=== PATIENT | male | born 1990 | race Caucasian/White ===

== ENCOUNTER 2020-08-02 20:47 | Emergency (ER) | payer OTHER, SELFPAY ==
[2020-08-02 20:47] VITALS: BP 129/72; PULSE 90; RESP 16; TEMP 36.8; O2SAT 97; BMI 29.5
--- NOTE | 2020-08-02 20:59 | EX.ED.DYSGE1 ---
HPI History of Present Illness Chief Complaint: Lower Extremity Injury Informant: patient Narrative Narrative: Patient had just finished a shower and was thinking about cutting his toenail when he tripped and bent the toenail backwards sustaining an almost complete avulsion. he denies any other injuries PFSH PFSH Medical History Asthma Non-smoker Home Medications albuterol sulfate 2.5 mg INHALATION Q4H PRN PRN 12/28/16 [History Last Taken Unknown] Allergy/AdvReac Type Severity Reaction Status Date / Time No Known Allergies Allergy Verified 08/02/20 20:50 Social History (Updated 08/02/20 @ 20:[address] Deacon Caballero, DO) Smoking Status: Never smoker substance use type: does not use ROS ROS ED Constitutional Constitutional ED: Denies chills or weight loss Eyes Eyes: Denies change in vision or diplopia ENT ENT ED: Denies ear pain, rhinorrhea or sore throat Cardiovascular Cardiovascular: Denies chest pain, orthopnea, palpitations or racing heartbeat Respiratory/Chest Respiratory/Chest: Denies cough, dyspnea or orthopnea Gastrointestinal Gastrointestinal: Denies abdominal pain, diarrhea, nausea or vomiting Genitourinary Genitourinary ED: Denies dysuria, hematuria or urinary frequency Musculoskeletal Musculoskeletal: Reports other Details: See history of present illness ; Denies arthralgias or myalgias Integumentary Denies abscess or rash Neurologic Neurologic: Denies headache(s) or weakness Psychiatric Psychiatric: Denies anxiety, depression, suicidal ideation or suicidal thoughts Endocrine Endocrinology: Denies polydipsia, polyphagia or polyuria Allergic/Immunologic Allergic/Immunologic ED: Denies mouth swelling, tongue swelling or urticaria EXAM Physical Exam Const Vital Signs: 08/02/20 20:47 Temperature 98.2 F Temperature Source Temporal Pulse Rate 90 Respiratory Rate 16 Blood Pressure 129/72 H Blood Pressure Mean 91 Pulse Ox 97 Oxygen Delivery Method Room Air Positive well nourished and well developed General Appearance ED: well developed HEENT Reports normocephalic, head/scalp atraumatic and moist mucous membranes Eyes PERRL and EOMs intact bilaterally Neck no lymphadenopathy, supple and no JVD Resp normal respiratory effort and clear to auscultation bilaterally Cardio regular rate, regular rhythm and no murmurs GI normal to inspection, nondistended, normoactive bowel sounds and non-tender Palpation: soft Back/Spine no CVA tenderness and normal ROM Extremity normal to inspection Extremity Narrative: The left great toe has a nearly complete nail avulsion from distal to proximal. No active bleeding. It is extremely loose. General Extremety ED: Negative for edema General Extremity: Negative for edema Neuro oriented x3 and CN's II-XII intact bilaterally Sensorium / Orientation: alert Motor Exam: strength 5/5 throughout Psych mental status grossly normal Mood & Affect: Negative for depressed or tearful Skin no rashes or lesions noted and no wounds MDM MDM MDM Narrative Medical decision making narrative: Let was applied to the underside of the toe. After adequate time 1% lidocaine was used to digitally block the toe. After anesthesia the nail was successfully removed. It was trimmed and placed back into place to keep the eponychium open. He was advised that a nail may not grow back. Follow-up with primary care or podiatry return if worsening or concerns Discharge Plan Triage Chief Complaint: Lower Extremity Injury ED Provider: Deacon Caballero Dx/Rx/DC Orders Clinical Impression: Avulsion of toenail of left foot Instructions: ED Detached Fingernail or Toenail Prescriptions: No Action albuterol sulfate 2.5 MG/3 ML solution for nebulization 2.5 mg inhalation Q4H PRN PRN (Reason: Sob &/Or Wheezing) RF: 0 Primary Care Provider: Phuc Davis Referrals: Phuc Davis DO [Primary Care Provider] - 1-2 Weeks Disposition Disposition: Home, self care
[2020-08-02] MEDS: Lidocaine/Epi/Tetracaine 50 ML 1 APPLIC TOPICAL (21:00)
[2020-08-02] MEDS: Lidocaine 1% (20 ml mdv) 20 ML Vial INFILT (21:24)
== END 2020-08-02 22:20 | disposition home or self-care (01) ==
LOC: ED 21:04
PROVIDERS: Emergency Provider Emergency Medicine; PCP Student in an Organized Health Care Education/Training Program
DX: S91.209A Unspecified open wound of unspecified toe(s) with damage to nail, initial encounter (principal); W18.40XA Slipping, tripping and stumbling without falling, unspecified, initial encounter; Y93.E1 Activity, personal bathing and showering; Y92.9 Unspecified place or not applicable; Y99.9 Unspecified external cause status; J45.909 Unspecified asthma, uncomplicated
CPT/HCPCS: 11760; 99283

== ENCOUNTER 2020-10-22 15:09 | Emergency (ER) | payer OTHER, SELFPAY ==
[2020-10-22 15:10] VITALS: BP 116/74; PULSE 94; RESP 16; TEMP 36.2; O2SAT 100; BMI 29.9
--- NOTE | 2020-10-22 15:19 | RAD_ITS ---
STUDY: X-RAY - LEFT FOOT CLINICAL: Male, 30 years old. Twisting injury of the left ankle/foot, pain TECHNIQUE: 3 view(s) of the foot. COMPARISON: None. FINDINGS: Normal talus, calcaneus, and tarsal bones. Normal visualized subtalar, talonavicular, calcaneocuboid, tarsal and tarsometatarsal articulations. Normal metatarsi. Normal metatarsophalangeal joint of the great toe. Normal tibial and fibular sesamoid bones. Normal interphalangeal joint of the great toe. Normal phalanges of the great toe. Normal second through fifth metatarsophalangeal joints. Normal interphalangeal joints and phalanges of the lesser toes. The soft tissue structures are unremarkable. RAD/Foot min 3 Views IMPRESSION: No fracture or malalignment. Electronically Signed: Tyrone Serna MD ([place]) at 15:42 EDT , Service support ,
--- NOTE | 2020-10-22 15:19 | ED.VIS.LOWEX ---
HPI History of Present Illness Chief Complaint: Lower Extremity Injury Informant: patient Narrative Narrative: 30-year-old male presents to the emergency department with left foot and ankle pain. Patient was playing kickball and was on the mound. He states that he had an inversion injury to the lower left leg. He states that he adjusted his shoes and then it happened again. Second time he was unable to bear weight. He notes swelling and bruising. PFSH PFSH Medical History Asthma Non-smoker Home Medications albuterol sulfate 2.5 mg INHALATION Q4H PRN PRN 12/28/16 [History Last Taken Unknown] Allergy/AdvReac Type Severity Reaction Status Date / Time No Known Allergies Allergy Verified 08/02/20 20:50 Social History Smoking Status: Never smoker substance use type: does not use ROS ROS ED Constitutional Constitutional ED: Denies chills or weight loss Eyes Eyes: Denies change in vision or diplopia ENT ENT ED: Denies ear pain, rhinorrhea or sore throat Cardiovascular Cardiovascular: Denies chest pain, orthopnea, palpitations or racing heartbeat Respiratory/Chest Respiratory/Chest: Denies cough, dyspnea or orthopnea Gastrointestinal Gastrointestinal: Denies abdominal pain, diarrhea, nausea or vomiting Genitourinary Genitourinary ED: Denies dysuria, hematuria or urinary frequency Musculoskeletal Musculoskeletal: Reports other Details: See history of present illness ; Denies arthralgias or myalgias Integumentary Denies abscess or rash Neurologic Neurologic: Denies headache(s) or weakness Psychiatric Psychiatric: Denies anxiety, depression, suicidal ideation or suicidal thoughts Endocrine Endocrinology: Denies polydipsia, polyphagia or polyuria Allergic/Immunologic Allergic/Immunologic ED: Denies mouth swelling, tongue swelling or urticaria EXAM Physical Exam Const Vital Signs: 10/22/20 15:10 Temperature 97.2 F L Temperature Source Temporal Pulse Rate 94 Respiratory Rate 16 Blood Pressure 116/74 Blood Pressure Mean 88 Pulse Ox 100 Oxygen Delivery Method Room Air Positive well nourished and well developed General Appearance ED: well developed HEENT Reports normocephalic, head/scalp atraumatic and moist mucous membranes Eyes PERRL and EOMs intact bilaterally Neck no lymphadenopathy, supple and no JVD Resp normal respiratory effort and clear to auscultation bilaterally Cardio regular rate, regular rhythm and no murmurs GI normal to inspection, nondistended, normoactive bowel sounds and non-tender Palpation: soft Back/Spine no CVA tenderness and normal ROM Extremity Extremity Narrative: Patient has tenderness to palpation over the left lateral malleolus and over the ATF ligaments. There is swelling over the midfoot. Neurovascular intact. No fibular head tenderness. No fifth metatarsal tenderness. General Extremety ED: Negative for edema General Extremity: Negative for edema Neuro oriented x3 and CN's II-XII intact bilaterally Sensorium / Orientation: alert Motor Exam: strength 5/5 throughout Psych mental status grossly normal Mood & Affect: Negative for depressed or tearful Skin no rashes or lesions noted and no wounds MDM MDM MDM Narrative Medical decision making narrative: My interpretation of the plain films of the left foot and ankle is soft tissue swelling with an apparent avulsion fracture of the midfoot. Patient was placed in a boot orthosis. He received Motrin here. If he needs crutches will provide them for him. Follow-up with podiatry. Radiography Diagnostic Testing: Radiology Impression Foot X-Ray 10/22/20 15:19 IMPRESSION: No fracture or malalignment. Electronically Signed: Tyrone Serna MD ([place]) at 15:42 EDT , Service support , Ankle X-Ray 10/22/20 15:30 IMPRESSION: Lateral ankle soft tissue swelling with small osseous density suggesting slight avulsion/ligamental injury. Electronically Signed: Tyrone Serna MD ([place]) at 15:42 EDT , Service support , Discharge Plan Triage Chief Complaint: Lower Extremity Injury ED Provider: Deacon Caballero Dx/Rx/DC Orders Clinical Impression: Foot fracture, left Instructions: ED Fracture, Foot Prescriptions: No Action albuterol sulfate 2.5 MG/3 ML solution for nebulization 2.5 mg inhalation Q4H PRN PRN (Reason: Sob &/Or Wheezing) RF: 0 Primary Care Provider: Phuc Davis Referrals: Brynn Roy DPM [STAFF PHYSICIAN] - As soon as possible Phuc Davis, [Primary Care Provider] - Disposition Disposition: Home, Self Care
--- NOTE | 2020-10-22 15:30 | RAD_ITS ---
STUDY: X-RAY - LEFT ANKLE REASON FOR EXAM: Male, 30 years old. INJURY TECHNIQUE: 3 view(s) of the ankle. COMPARISON: None. FINDINGS: Normal visualized distal tibia and fibula. Normal medial and lateral malleoli. Normal tibiotalar articulation and ankle mortise. Small osseous density projecting over the lateral ankle, unknown donor site. Normal visualized talus and calcaneus. The visualized subtalar, talonavicular, calcaneocuboid and tarsal articulations are normal. Lateral ankle soft tissue swelling. RAD/Ankle min 3 Views IMPRESSION: Lateral ankle soft tissue swelling with small osseous density suggesting slight avulsion/ligamental injury. Electronically Signed: Tyrone Serna MD ([place]) at 15:42 EDT , Service support ,
[2020-10-22] MEDS: Ibuprofen 400 MG Tablet 800 MG PO (16:05)
== END 2020-10-22 16:17 | disposition home or self-care (01) ==
PROVIDERS: Emergency Provider Emergency Medicine; PCP Student in an Organized Health Care Education/Training Program
DX: S92.902A Unspecified fracture of left foot, initial encounter for closed fracture (principal); X50.9XXA Other and unspecified overexertion or strenuous movements or postures, initial encounter; Y93.6A Activity, physical games generally associated with school recess, summer camp and children; Y92.89 Other specified places as the place of occurrence of the external cause; Y99.8 Other external cause status; J45.909 Unspecified asthma, uncomplicated
CPT/HCPCS: 73610; 73630; 99284

== ENCOUNTER 2020-12-14 19:55 | Emergency (ER) | payer OTHER, SELFPAY ==
[2020-12-14 19:57] VITALS: BP 118/70; PULSE 105; RESP 18; TEMP 37.3; O2SAT 99; BMI 29.8
--- NOTE | 2020-12-14 22:35 | EX.ED.DYSGE1 ---
HPI History of Present Illness Chief Complaint: Nausea/Vomiting/Diarrhea Detail of Chief Complaint: Vomiting and diarrhea that started this morning Informant: patient Narrative Narrative: Patient presents to the emergency department with nausea and vomiting that started this morning. Patient states that he is thrown up about 3 times and has had about 10 episodes of watery stool. He describes intermittent abdominal cramping. He denies any sick contacts. Denies eating any undercooked or unusual foods. He denies recent travel. He has not been on antibiotics. Patient has not had Covid and has not had the Covid vaccine. Patient denies any recent cough. He does describe a mild headache and body aches. Prior similar symptoms: No PFSH PFSH Medical History Asthma Non-smoker Home Medications albuterol sulfate 2.5 mg INHALATION Q4H PRN PRN 12/28/16 [History Last Taken Unknown] ondansetron 4 mg PO Q8H PRN PRN #10 tab 12/15/20 [Rx Last Taken Unknown] Allergy/AdvReac Type Severity Reaction Status Date / Time No Known Allergies Allergy Verified 12/14/20 20:00 Surgical History (Updated 12/14/20 @ 22:53 by Mira Chappell) History of appendectomy Hx of tonsillectomy Social History Smoking Status: Never smoker substance use type: does not use ROS ROS ED Constitutional Constitutional ED: Reports systems reviewed and no addt'l complaints, except as documented; Denies body ache(s), change in weight or chills Eyes Eyes: Denies acute decrease in peripheral vision, change in vision, double vision or loss of vision ENT ENT ED: Reports none; Denies ear pain, lip swelling, loss taste/smell, neck pain, otalgia or sore throat Cardiovascular Cardiovascular: Reports none; Denies abdominal pain, chest pain with activity, leg edema, lightheadedness, palpitations, rapid heart rate or syncope Respiratory/Chest Respiratory/Chest: Reports none; Denies change in mental status, dry cough, dyspnea, hemoptysis, shortness of breath at rest or shortness of breath with exertion Gastrointestinal Gastrointestinal: Reports none, abdominal pain, diarrhea, nausea and vomiting; Denies change in stool character, hematemesis, hematochezia, melena or rectal bleeding Genitourinary Genitourinary ED: Reports none; Denies abdominal discomfort, anuria, dysuria, genital pain or polyuria Musculoskeletal Musculoskeletal: Reports none and myalgias; Denies arthralgias, back pain, difficulty walking, extremity pain or muscle weakness Integumentary Reports none; Denies abscess or rash Neurologic Neurologic: Reports none and headache(s); Denies abnormal gait, confusion, focal weakness, frequent falls, loss of vision, numbness, paresthesias, radicular pain, vertigo or weakness Psychiatric Psychiatric: Reports systems reviewed and no addt'l complaints, except as documented and none; Denies behavioral changes, confusion, difficulty concentrating, hallucinations, suicidal ideation, tactile hallucinations or visual hallucinations Endocrine Endocrinology: Denies none, cold intolerance, excessive sweating, fatigue or heat intolerance Hematologic/Lymphatic Hematologic/Lymphatic: Reports none; Denies anemia, easy bleeding or easy bruising Allergic/Immunologic Allergic/Immunologic ED: Denies as per HPI, none, lip swelling, mouth swelling, throat swelling, tongue swelling or hives EXAM Physical Exam Const Vital Signs: 12/14/20 19:57 Temperature 99.2 F H Temperature Source Oral Pulse Rate 105 H Respiratory Rate 18 Blood Pressure 118/70 Blood Pressure Mean 86 Pulse Ox 99 Oxygen Delivery Method Room Air Positive well nourished and well developed General Appearance ED: well developed and NAD HEENT Reports TM's clear and moist mucous membranes normocephalic and atraumatic; Negative for trauma or tenderness Tympanic Membrane ED: Yes TM's clear Eyes PERRL and EOMs intact bilaterally General Eye ED: Negative for pale conjunctiva or scleral icterus Neck no lymphadenopathy, supple and no JVD General: Negative for tenderness Chest Wall inspection of chest normal and palpation of chest normal Chest: Negative for tenderness Resp normal respiratory effort and clear to auscultation bilaterally Effort and Inspection: Negative for respiratory distress or pain with movement Auscultation: Negative for rhonchi, wheezes or diminished lung sounds Cardio regular rate, regular rhythm, S1 normal heart sound, S2 normal heart sound and no murmurs Peripheral Pulses: pulses 2+ throughout GI normal to inspection, nondistended, normoactive bowel sounds, soft to palpation, non-tender, non-distended and no masses Back/Spine no CVA tenderness and no thoracic nor lumbar tenderness Extremity normal to inspection General Extremety ED: Negative for edema General Extremity: Negative for edema Neuro oriented x3, CN's II-XII intact bilaterally, no sensory deficits noted and gait normal Sensorium / Orientation: awake, alert, oriented to person, oriented to place and oriented to time Motor Exam: strength 5/5 throughout and strength abnormal Psych mental status grossly normal Skin no rashes or lesions noted and no wounds MDM MDM MDM Narrative Medical decision making narrative: I suspect patient has a viral gastroenteritis. On arrival he was given a liter of same fluid bolus and given Zofran. He had no further vomiting. He is advised to use Imodium as needed for the diarrhea and will give a prescription for Zofran for home. Patient advised to follow-up with primary care physician 3 to 5 days. He is to return if persistent vomiting, dehydration, or condition should worsen anyway. Lab Data Attestation: I reviewed the patient's lab results. Labs: Laboratory Results - last 24 hr 12/14/20 12/14/20 22:43 22:43 WBC 11.8 H RBC 5.01 Hgb 15.3 Hct 45.3 MCV 90.4 MCH 30.5 MCHC 33.8 RDW Std Deviation 39.9 RDW Coeff of Kort[place] 12.3 Plt Count 235 MPV 10.8 Immature Gran % (Auto) 0.300 Neut % (Auto) 90.9 H Lymph % (Auto) 3.4 L [place] % (Auto) 4.4 Eos % (Auto) 0.7 Baso % (Auto) 0.3 Absolute Neuts (auto) 10.7 H Absolute Lymphs (auto) 0.40 L Nucleated RBC % 0 Sodium 137 Potassium 3.9 Chloride 105 Carbon Dioxide 27.0 Anion Gap 5 BUN 16 Creatinine 1.16 Estim Creat Clear Calc 102.20 Est GFR (MDRD) Af Amer 95 Est GFR (MDRD) Non-Af 78 BUN/Creatinine Ratio 13.8 Glucose 97 Calcium 8.9 Discharge Plan Triage Chief Complaint: Nausea/Vomiting/Diarrhea ED Provider: López Holden Dx/Rx/DC Orders Clinical Impression: Viral gastroenteritis Instructions: ED Gastroenteritis, Viral (Adult) Prescriptions: New ondansetron [ondansetron] 4 MG tablet 4 mg PO Q8H PRN PRN (Reason: Nausea) Qty: 10 RF: 0 No Action albuterol sulfate 2.5 MG/3 ML solution for nebulization 2.5 mg inhalation Q4H PRN PRN (Reason: Sob &/Or Wheezing) RF: 0 Primary Care Provider: Phuc Davis Referrals: Phuc Davis DO [Primary Care Provider] - Disposition Disposition: Home, Self Care
[2020-12-14] MEDS: Ondansetron 4 MG/2 ML Vial IV (22:54)
[2020-12-14] MEDS: 0.9% Normal Saline 1,000 ML 1000 ML IV (22:54)
[2020-12-14 22:57] LABS: Absolute Neutrophil Count 10.7 X10^3/uL (2.0-7.7); Basophil# 0.03 X10^3/uL; Basophil% 0.3 % (0-1); Eosinophil# 0.08 X10^3/uL; Eosinophils% 0.7 % (0-5); Hematocrit 45.3 % (40-54); Hemoglobin 15.3 g/dL (13.0-16.5); Lymphocyte % 3.4 % (19-41); Mean Corp Hgb Conc 33.8 g/dL (32-36); Mean Corpuscular Hgb 30.5 pg (27.0-32.0); Mean Corpuscular Volume 90.4 fL (80-94); Mean Platelet Vol. 10.8 fl (6.2-12.0); Monocyte# 0.52 X10^3/uL; Monocyte% 4.4 % (0-10); NRBC Flagged by Analyzer 0 % (0-5); Neutrophil # 10.69 X10^3/uL (2.7-7.7); Neutrophil % 90.9 % (47-70); POSITIVE DIFFERENTIAL YES; Platelet Count 235 K/mm3 (150-450); RBC Distribution Width CV 12.3 % (11.6-14.6); RBC Distribution Width SD 39.9 fl (35.1-43.9); Red Blood Count 5.01 M/mm3 (4.6-6.2); White Blood Count 11.8 K/mm3 (4.4-11.0)
[2020-12-14 23:00] LABS: Differential Indicated SCAN CRITERIA MET
[2020-12-14 23:14] LABS: Anion Gap 5 (5-15); BUN 16 mg/dL (7-18); BUN/Creat Ratio 13.8 RATIO (10-20); Calcium,Total 8.9 mg/dL (8.5-10.1); Chloride 105 mmol/L (98-107); Creatinine, Serum 1.16 mg/dL (0.70-1.30); EST Glomerular Filtration Rate 78 mL/min (>60); Est Glom Filt Rate - Afr Amer 95 mL/min (>60); Glucose 97 mg/dL (74-106); Potassium 3.9 mmol/L (3.5-5.1); Sodium Level 137 mmol/L (136-145)
[2020-12-15 01:14] VITALS: BP 120/68; PULSE 72; RESP 18; O2SAT 100
== END 2020-12-15 01:15 | disposition home or self-care (01) ==
PROVIDERS: Emergency Provider Emergency Medicine; PCP Student in an Organized Health Care Education/Training Program
DX: A08.4 Viral intestinal infection, unspecified (principal); J45.909 Unspecified asthma, uncomplicated
CPT/HCPCS: 80048; 85025; 87426; 96361; 96374; 99283; J7030; J2405

== ENCOUNTER 2021-02-10 02:14 | Emergency (ER) | payer OTHER, SELFPAY ==
[2021-02-10 02:15] VITALS: BP 146/92; PULSE 100; RESP 18; TEMP 36.7; O2SAT 98; BMI 31.4
--- NOTE | 2021-02-10 02:39 | EX.ED.DYSGE1 ---
HPI History of Present Illness Chief Complaint: Dental Narrative Narrative: Patient is a 30-year-old male with a history of dental problems. He states that he went and saw his dentist today because he has noticed some increased pain in his upper jaw. He states that the dentist saw an area of possible infection and placed him on clindamycin. Patient states he has had 3 doses of this but has noticed some increased pain and swelling and has concern for a abscess. Secondary to this he presents for evaluation. Patient denies any trauma fevers chills difficulty breathing or swallowing PFSH PFSH Medical History Asthma Non-smoker Home Medications oxycodone-acetaminophen [Percocet] 1 tab PO Q6H PRN 3 Days #12 tab 02/10/21 [Rx Last Taken Unknown] Allergy/AdvReac Type Severity Reaction Status Date / Time No Known Allergies Allergy Verified 02/10/21 02:18 Surgical History (Updated 12/14/20 @ 22:53 by Mira Chappell) History of appendectomy Hx of tonsillectomy Social History Smoking Status: Former smoker substance use type: does not use ROS ROS ED Constitutional Constitutional ED: Denies chills or fever(s) ENT ENT ED: Reports other Details: Positive dental pain ; Denies sore throat Cardiovascular Cardiovascular: Denies chest pain Respiratory/Chest Respiratory/Chest: Denies cough or dyspnea Gastrointestinal Gastrointestinal: Denies abdominal pain, diarrhea, nausea or vomiting Musculoskeletal Musculoskeletal: Denies myalgias Integumentary Denies rash Neurologic Neurologic: Reports headache(s) Hematologic/Lymphatic Hematologic/Lymphatic: Denies easy bleeding or easy bruising EXAM Physical Exam Const Vital Signs: 02/10/21 02:15 Temperature 98.1 F Temperature Source Temporal Pulse Rate 100 Respiratory Rate 18 Blood Pressure 146/92 H Blood Pressure Mean 110 Pulse Ox 98 Oxygen Delivery Method Room Air Positive well nourished and well developed General Appearance ED: well developed HEENT Reports moist mucous membranes HEENT Narrative: Patient has dental caries present. On the roof of the mouth there is a small 1 by half centimeter area of fluctuance consistent with abscess. No airway edema or compromise noted Eyes PERRL and EOMs intact bilaterally Neck supple Neck Narrative: No brawny edema in the submental space to suggest Kranthi's angina. Positive anterior cervical lymphadenopathy noted Resp normal respiratory effort and clear to auscultation bilaterally Cardio regular rate and regular rhythm Extremity normal to inspection Neuro oriented x3 and CN's II-XII intact bilaterally Sensorium / Orientation: alert Motor Exam: strength 5/5 throughout Psych mental status grossly normal Skin no rashes or lesions noted MDM MDM MDM Narrative Medical decision making narrative: Patient presented to the ER afebrile. He had a physical exam consistent with dental abscess but nothing to suggest Kranthi's angina or airway compromise. Therefore I felt no need for imaging or laboratory studies. The patient had the dental abscess drained as documented below. He is currently on clindamycin and therefore can continue this as it is a proper antibiotic for his dental abscess. Based on the fact I performed an incision and drainage I will prescribe Percocet for pain control. Patient can follow-up with his dentist as previously directed Patient was given a superior alveolar dental block using 1.5 mL of 1% lidocaine with epinephrine and 0.5% Marcaine. Following this a #11 blade was used to make a 1 cm incision into the area of fluctuance on the roof of the mouth. There was a moderate amount of blood ambulate material expressed. Patient tolerated the procedure well without complication. Discharge Plan Triage Chief Complaint: Dental ED Provider: Maciej Strickland Dx/Rx/DC Orders Clinical Impression: Abscess, dental Instructions: Dental Abscess Prescriptions: New oxycodone-acetaminophen [Percocet] 5-325 mg tablet 1 tab PO Q6H PRN (Reason: pain) 3 Days Qty: 12 RF: 0 Primary Care Provider: Phuc Davis Referrals: Phuc Davis DO [Primary Care Provider] - Activity Restrictions/Additional Instructions: Please continue the clindamycin prescribed as your dentist and also do salt water gargles for the next 24 to 48 hours Disposition Disposition: Home, Self Care
[2021-02-10 03:08] VITALS: BP 143/60; PULSE 99; RESP 18; O2SAT 98
[2021-02-10] MEDS: Bupivacaine Mpf 0.5% 30 ML VIAL INFILT (03:08)
== END 2021-02-10 03:09 | disposition home or self-care (01) ==
PROVIDERS: Emergency Provider Emergency Medicine; PCP Student in an Organized Health Care Education/Training Program
DX: K08.89 Other specified disorders of teeth and supporting structures (principal); K04.7 Periapical abscess without sinus; J45.909 Unspecified asthma, uncomplicated; Z87.891 Personal history of nicotine dependence
CPT/HCPCS: 41800; 64999; 99282

== ENCOUNTER 2023-06-21 07:47 | Day surgery (SDC) | payer OTHER, SELFPAY ==
[2023-06-21 08:11] VITALS: BP 120/82; PULSE 67; RESP 16; TEMP 36.8; O2SAT 98; BMI 35.1
[2023-06-21] MEDS: Lactated Ringers 1,000 ML 15 ML IV (08:19)
--- NOTE | 2023-06-21 08:21 | HP.PCM_ITS ---
History and Physical Date of Admission: 06/21/23 Intake Vital Signs 03/13/2412:21 Height 6 ft Weight: 266 lb BMI 36.1 BP 125/69 H Blood Pressure Location Lt brachial Respiration 16 Intake Visit Reasons: F/U BLEEDING FROM RECTUM AREA Chief Complaint: f/u bleeding from rectum area [employer] Required: No Is patient in pain?: No Allergies No Known Allergies Allergy (Verified 05/10/23 13:12) Medications cholecalciferol (vitamin D3) 1,250 mcg (50,000 unit) capsule 50,000 unit PO QWEEK 03/13/23 [History Confirmed 05/10/23] pantoprazole 40 mg tablet,delayed release 40 mg PO DAILY 03/13/23 [History Confirmed 05/10/23] tadalafil 10 mg tablet 10 mg PO PRN 03/13/23 [History Confirmed 05/10/23] Subjective Details: The patient reports he had an episode recently where he felt something wet and reached back and wiped and it was all blood. This was 2 days ago. He reports no pain at this pilonidal area. He does not report any pain with defecation and he says he is not constipated. Objective Details: On rectal exam I was able to see a small hemorrhoid which may be the source of the bleeding. Pilonidal area looks normal Coding Level of Care Code Off vis,est,level 3 Diagnoses Rectal bleeding K62.5 [facility] Medical History (Updated 05/10/23 @ 14:[address] Edenilson Qureshi MD) Asthma Non-smoker Pilonidal cyst Surgical History History of appendectomy Hx of tonsillectomy S/P surgical removal of pilonidal cyst Family History Grandfather Asthma Diabetes Heart disease Social History Smoking Status: Former smoker substance use type: does not use Assessment and Plan (No Qualifiers) Assessment and Plan (1) Rectal bleeding: Status: Acute Plan: The patient originally came to me because he thought his pilonidal was bleeding with the pilonidal once again looks normal. He does say that he had blood in his anal area that he felt a few days when he wiped and it was all blood. The patient does not report any blood in his stool but it happens about an hour after defecation. Patient does not have family history of colon cancer and he has never had a colonoscopy. I recommend the patient undergo colonoscopy first to evaluate for any more bleeding in other areas of the colon. As long as this is normal I will retroflex the scope and examined his hemorrhoids. If he does have enlarged hemorrhoids that look to be the source of the bleeding and nothing else in the colon I will discuss hemorrhoidectomy with him after. I explained endoscopy in detail to the patient. I explained the risks including but not limited to stroke or heart attack with anesthesia, perforation of the GI tract, bleeding, infection. I explained that any of these could necessitate further emergency surgery. The patient understands and all questions were answered sufficiently. The patient wishes to proceed with procedure. Edenilson Qureshi MD Pager: [facility] [address] [place] [address], [address] [place] [address] Office: I have examined the patient and the H&P has been reviewed. There are no clinical changes since date of exam.
[2023-06-21 08:55] VITALS: BP 120/82; BP 123/96; PULSE 77; RESP 16; TEMP 36.3; O2SAT 96
--- NOTE | 2023-06-21 08:59 | OP.CCLET_ITS ---
06/21/2023 Phuc Davis [address] [place] [address] Re : Colonoscopy procedure for Dain Ng Dear Dr. Davis This procedure was performed on Wednesday, June 21, 2023. My impressions and recommendations are as follows: Impressions : - Non-bleeding internal hemorrhoids. - The examination was otherwise normal on direct and retroflexion views. - No specimens collected. Recommendations : - Discharge patient to home. - Resume previous diet. - Continue present medications. - Repeat colonoscopy in 10 years for screening purposes. - Return to my office in 1 week. My findings are described in the full procedure note, which is enclosed. If I can be of further assistance, please feel free to contact me at Doctor phone number(s): , Work: . Sincerely, Edenilson Qureshi MD 06/21/2023 8:59:01 AM This report has been signed electronically.
--- NOTE | 2023-06-21 08:59 | OP.COLON_ITS ---
Patient Name: Dain Ng Procedure Date: 06/21/2023 8:25 AM Date of : 1990 Age: 32 Procedure: Colonoscopy Indications: Rectal bleeding Providers: Edenilson Qureshi MD Referring MD: hPuc Davis Medicines: Propofol per Anesthesia Patient Profile: This is a 32 year old male. Refer to note in patient chart for documentation of history and physical. Last Colonoscopy: none. The patient's first colonoscopy is today. Complications: No immediate complications. Procedure: Pre-Anesthesia Assessment: - Prior to the procedure, a History and Physical was performed, and patient medications and allergies were reviewed. The patient's tolerance of previous anesthesia was also reviewed. The risks and benefits of the procedure and the sedation options and risks were discussed with the patient. All questions were answered, and informed consent was obtained. Prior Anticoagulants: The patient has taken no anticoagulant or antiplatelet agents. After reviewing the risks and benefits, the patient was deemed in satisfactory condition to undergo the procedure. After I obtained informed consent, the scope was passed under direct vision. Throughout the procedure, the patient's blood pressure, pulse, and oxygen saturations were monitored continuously. The Colonoscope was introduced through the anus and advanced to the cecum, identified by appendiceal orifice and ileocecal valve. The colonoscopy was performed without difficulty. The patient tolerated the procedure well. The quality of the bowel preparation was good. The ileocecal valve, appendiceal orifice, and rectum were photographed. Scope In: 8:37:55 AM Scope Withdrawal Time 0 hours 8 minutes 56 seconds Scope Out: 8:49:44 AM Total Procedure Duration Time 0 hours 11 minutes 49 seconds Findings: Non-bleeding internal hemorrhoids were found during retroflexion. The hemorrhoids were medium-sized. The exam was otherwise without abnormality on direct and retroflexion views. Impression: - Non-bleeding internal hemorrhoids. - The examination was otherwise normal on direct and retroflexion views. - No specimens collected. Recommendation: - Discharge patient to home. - Resume previous diet. - Continue present medications. - Repeat colonoscopy in 10 years for screening purposes. - Return to my office in 1 week. Procedure Code(s): --- Professional --- 01325, Colonoscopy, flexible; diagnostic, including collection of specimen(s) by brushing or washing, when performed (separate procedure) Diagnosis Code(s): --- Professional --- K64.8, Other hemorrhoids K62.5, Hemorrhage of anus and rectum CPT copyright 2021 [employer]. All rights reserved. The codes documented in this report are preliminary and upon machine cell tuber review may be revised to meet current compliance requirements. Edenilson Qureshi MD 06/21/2023 8:59:01 AM This report has been signed electronically. Number of Addenda: 0 Note Initiated On: 06/21/2023 8:25 AM
[2023-06-21 09:01] VITALS: BP 100/67; BP 120/82; PULSE 90; RESP 16; O2SAT 96
[2023-06-21 09:04] VITALS: BP 107/76; BP 120/82; PULSE 74; RESP 16; TEMP 36.8; O2SAT 97
[2023-06-21 09:16] VITALS: BP 120/82
== END 2023-06-21 09:27 | disposition home or self-care (01) ==
LOC: EN 07:48 → AC 07:49
PROVIDERS: PCP Student in an Organized Health Care Education/Training Program; Referring Provider Student in an Organized Health Care Education/Training Program; Visit Provider Surgery
PROC: 0DJD8ZZ Inspection of Lower Intestinal Tract, Via Natural or Artificial Opening Endoscopic (ICD-10-PCS; CPT 45378; principal; 2023-06-21 08:40)
DX: K62.5 Hemorrhage of anus and rectum (principal); Z87.891 Personal history of nicotine dependence; K64.8 Other hemorrhoids
CPT/HCPCS: 45378; J7120; J2405

== ENCOUNTER → 2024-01-14 | Outpatient (CLI) | payer OTHER, SELFPAY | END | disposition home or self-care (01) | LOC: MTRAD 13:59 | PROVIDERS: PCP Student in an Organized Health Care Education/Training Program; Referring Provider Chiropractor; Visit Provider Chiropractor | DX: M99.01 Segmental and somatic dysfunction of cervical region (principal); M99.03 Segmental and somatic dysfunction of lumbar region | CPT/HCPCS: 72040; 72110 ==